=== PATIENT | female | born 1940 | race Caucasian/White ===

== ENCOUNTER 2017-02-14 19:42 | Emergency (ER) | payer MEDICARE ==
[~2017-02-14 19:42] MED LIST: ASPI1TAB69 PO; BENZ1CAP34 PO; BETA0.052 TOPICAL; CETI1TAB39 PO; CHOL400D2 PO; CLON0.1T PO; DICL1GEL TOPICAL; ESOM1CAP16 PO; ESTR.625 PO; FLUT50SP EACH NARE; LEVO112T2 PO; LORA-361 PO; LOSA50TA PO; NU-IRON PO; OMEP40CA2 PO; OXYC1TAB63 PO; POTA-163 PO; REFRDRO EACH EYE; TRIME100 PO; [UNRECOGNIZED DRUG - CODE] PO
[2017-02-14 19:43] VITALS: BP 222/120; PULSE 93; RESP 16; TEMP 98.4; O2SAT 96
--- NOTE | 2017-02-14 20:39 | PD ---
Physical Exam Time Seen by Provider: 20:[address] oT sent to r/o blood clot to RLE. pain in R leg since last night. worse today. positive leg edema greater than left. Reports tingling in R heel. Denies fever, vomiting. VSS. Patient seen in triage. Awaiting bed placement. Data Data Last Documented VS Vital Signs Date Time Temp Pulse Resp B/P Pulse Ox O2 Delivery O2 Flow Rate FiO2 02/14/17 19:43 98.4 93 16 222/120 96 Room Air MDM Supervised Visit with BRUCE: Betzy Matthew Feb 14, 2017 20:39
--- NOTE | 2017-02-14 23:11 | RADRPT ---
EXAM DATE/TIME: 02/14/2017 22:17 [facility] COMPARISON: No previous studies available for comparison. INDICATIONS : Right leg swelling. MEDICAL HISTORY : Hypertension. Arthritis. Osteoporosis. Thyroid disease. Hearing loss. Vertigo. Anticoagulant thera py, 81mg Aspirin. Shortness of breath. GERD. Hiatal hernia. Bladder sling. Kidney cysts. Anxiety. Ane stephenie. Thyroid cancer. SURGICAL HISTORY : Cholecystectomy. Right vocal cord surgery. Endoscopy. Umbilical hernia repair. Hysterectomy. Tubal ligation. Bladder sling surgery. Biopsy right shoulder. Thyroid cancer surgery. ENCOUNTER: Initial ACUITY: 2 day PAIN SCORE: 9/10 LOCATION: Right leg. TECHNIQUE: Venous ultrasound of the leg was performed from the inguinal ligament to the proximal calf. Real-caleb e, color Doppler and spectral tracing, compression and augmentation techniques were used. FINDINGS: There is normal compressibility of the deep venous system from the inguinal region to the proximal ca lf. No echogenic clot is seen in the lumen of the common femoral, femoral, popliteal, and posterior tibial veins. There is a normal response of the venous system to proximal and distal augmentation an d respiration. There is a oval-shaped fluid collection in the popliteal fossa measuring 3.5 x 2.5 cm. This is charac teristic of a Huffman's cyst. CONCLUSION: 1. No evidence of DVT. 2. Huffman's cyst. Anthony Ruiz MD on February 14, 2017 at 23:09 Board Certified Radiologist. This report was verified electronically.
--- NOTE | 2017-02-14 23:58 | PD ---
HPI Chief Complaint: Pain: Acute or Chronic Time Seen by Provider: 23:43 Travel History International Travel<30 days: No Contact w/Intl Traveler<30days: No Traveled to known affect area: No History of Present Illness HPI Patient 76-year-old female with a history of uncontrolled hypertension chronic right lower extremity deformity secondary to "arthritis", presents emergency Department with right lower extremity swelling. Patient was sent by her primary care physician in for an ultrasound of her leg to rule out DVT. Patient also does have a history of lymphoma but states his been remission for a long time. She denies any shortness of breath chest pain. She states that there is a burning sensation from her knee down the right lower extremity. No history of blood clots not on any blood thinners. States he recently had blood work which was within normal limits. She is also going to follow-up with a superior court judge in the next 1-2 weeks for evaluation of her uncontrolled blood pressure. Denies chest pain shortness of breath decreased urine output blood in the urine headaches focalized weakness. PFSH Past Medical History Hx Anticoagulant Therapy: Yes Anemia: Yes Arthritis: Yes (RIGHT FOOT, ANKLE AND BOTH HANDS) Asthma: No Heart Rhythm Problems: No Cancer: Yes (thyroid) Cardiovascular Problems: Yes High Cholesterol: No Chest Pain: No Congestive Heart Failure: No COPD: No Cerebrovascular Accident: No Diabetes: No Diminished Hearing: Yes Endocrine: No Gastrointestinal Disorders: Yes (GERD) GERD: Yes Glaucoma: No Genitourinary: Yes (BLADDER SLING ) Headaches: No Hepatitis: No Hiatal Hernia: Yes Hypertension: Yes Immune Disorder: No Kidney Stones: No Musculoskeletal: Yes (ARTHRITIES) Neurologic: Yes (VERTIGO) Psychiatric: Yes (ANXIETY) Reproductive: Yes (HYSTERECTOMY) Respiratory: Yes (SHORT OF BREATHE) Immunizations Current: Yes Migraines: No Myocardial Infarction: No Seizures: No Sleep Apnea: No Thyroid Disease: Yes Ulcer: No PNEUMOCCOCAL Vaccine (Year): 2 Menopausal: Yes : 7 Para: 7 Dilation and Curettage (D&C): Yes Tubal Ligation: Yes Past Surgical History Abdominal Surgery: Yes ( UMBILICAL HERNIA REPAIR) Body Medical Devices: LOW POTASSIUM Cardiac Surgery: No Cholecystectomy: Yes Ear Surgery: No Endocrine Surgery: Yes (THYROID SX FOR CA) Eye Surgery: No Genitourinary Surgery: Yes (bladder sling surgery, uretheral tube ) Gynecologic Surgery: Yes ( TUBAL LIGATION, D&C, HYSTERECTOMY 1994) Hysterectomy: Yes (TOTAL) Oral Surgery: Yes (SEVERAL TEETH REMOVED, RIGHT VOCAL CORD) Pacemaker: No Thoracic Surgery: Yes (ENDOSCOPY) Other Surgery: Yes (umbilical hernia repair, benign tumor removed from back) Social History Alcohol Use: No Tobacco Use: No Substance Use: No Allergies-Medications (Allergen,Severity, Reaction): Coded Allergies: Morphine (Verified Allergy, Severe, 02/14/17) MORPHINE DERIVATIVES Prilosec (Verified Allergy, Severe, ABDOMENAL PAIN, 02/14/17) MEME Inhibitors (Verified Allergy, Mild, 02/14/17) Adhesives (Verified Allergy, Mild, 02/14/17) Augmentin (Verified Allergy, Mild, 02/14/17) Axid (Verified Allergy, Mild, 02/14/17) Beta Blockers (Verified Allergy, Mild, 02/14/17) Calcium Channel Blockers (Verified Allergy, Mild, 02/14/17) Capoten (Verified Allergy, Mild, 02/14/17) Cardura (Verified Allergy, Mild, 02/14/17) Cipro (Verified Allergy, Mild, 02/14/17) Corgard (Verified Allergy, Mild, 02/14/17) DIURETICS (Verified Allergy, Mild, 02/14/17) Demadex (Verified Allergy, Mild, 02/14/17) Hydrodiuril (Verified Allergy, Mild, 02/14/17) Iodine (Verified Allergy, Mild, 02/14/17) Keflex (Verified Allergy, Mild, YEAST INFECTION, 02/14/17) LOTREL 10/2.5 (Verified Allergy, Mild, 02/14/17) Lodine (Verified Allergy, Mild, 02/14/17) Lopressor (Verified Allergy, Mild, 02/14/17) Micardis (Verified Allergy, Mild, 02/14/17) Phenergan (Verified Allergy, Mild, Restlessness, 02/14/17) Procardia (Verified Allergy, Mild, 02/14/17) Sulfa (Verified Allergy, Mild, 02/14/17) FAMILY OF SULFA DRUGS Tenex (Verified Allergy, Mild, 02/14/17) Toprol Xl (Verified Allergy, Mild, 02/14/17) Azithromycin (Verified Allergy, Unknown, 02/14/17) Codeine (Verified Allergy, Unknown, 02/14/17) Erythromycins (Verified Allergy, Unknown, 02/14/17) Felodipine (Verified Allergy, Unknown, 02/14/17) Hydralazine (Verified Allergy, Unknown, 02/14/17) Lozol (Verified Allergy, Unknown, 02/14/17) Meperidine (Verified Allergy, Unknown, 02/14/17) Methadone (Verified Allergy, Unknown, 02/14/17) Sulfacet-R (Verified Allergy, Unknown, 02/14/17) Uncoded Allergies: PLENDIL (Allergy, Severe, 02/11/16) AQUANIL SOAP (Allergy, Mild, FAN SKIN, 12/02/07) Reported Meds & Prescriptions Reported Meds & Active Scripts Active Reported Losartan (Losartan Potassium) 50 Mg Tab 100 Mg PO DAILY Voltaren Topical (Diclofenac Topical) 1% Gel 1 Applic TOPICAL BID Vitamin D (Cholecalciferol) 400 Unit/Ml Drops 400 Units PO BID Trimethoprim 100 Mg Tab 100 Mg PO DAILY Refresh Opth Drops (Polyvinyl Alcohol-Povidone Opth Drops) 1.4-0.6% Drops 1-2 Drop EACH EYE PRN PRN Premarin (Estrogens Conjugated) 0.625 Mg Tab 0.625 Mg PO DAILY Potassium Chloride ER (Potassium Chloride) 20 Meq Tab 20 Meq PO DAILY Poly-Iron 150 (Polysaccharide Iron Complex) 150 Mg Cap 150 Mg PO Q12HR Oxycodone-Acetaminophen 5-325 mg Tab 1 Tab PO BID PRN Zyrtec Allergy (Cetirizine HCl) 10 Mg Tab 10 Mg PO DAILY Omeprazole 40 Mg Cap 40 Mg PO DAILY Levothyroxine (Levothyroxine Sodium) 112 Mcg Tab 112 Mcg PO DAILY Fluticasone Nasal [place] 50 Mcg/Act Naspr 50 Mcg EACH NARE BID 50 mcg/spray Esomeprazole DR 40 Mg Capdr 40 Mg PO DAILY Clonidine (Clonidine HCl) 0.1 Mg Tab 0.1 Mg PO TID Claritin (Loratadine) 10 Mg Tab 10 Mg PO DAILY Betamethasone Dipropionate Topical 0.05% Cream 1 Applic TOPICAL BID Benzonatate 200 Mg Cap 200 Mg PO TID PRN B-12 (Cobalamine Combinations) 100-5,000 Mcg Subl 1 Tab PO DAILY Aspirin 81 Mg Tabdr 81 Mg PO DAILY Review of Systems Except as stated in HPI: all other systems reviewed are Neg Physical Exam Narrative GENERAL: Well-developed well-nourished no apparent distress SKIN: Focused skin assessment warm/dry. HEAD: Atraumatic. Normocephalic. EYES: Pupils equal and round. No scleral icterus. No injection or drainage. ENT: No nasal bleeding or discharge. Mucous membranes pink and moist. NECK: Trachea midline. No JVD. CARDIOVASCULAR: Regular rate and rhythm. No murmur appreciated. RESPIRATORY: No accessory muscle use. Clear to auscultation. Breath sounds equal bilaterally. GASTROINTESTINAL: Abdomen soft, non-tender, nondistended. Hepatic and splenic margins not palpable. MUSCULOSKELETAL: No clubbing. No cyanosis. There is 1+ edema of the right lower extremity which is nonpitting. Compartments are soft. There is a pain with light palpation. There is also some tenderness in the posterior aspect of the right knee. Pulses motor and sensory intact distally in all 4 extremity's. There is lateral angulation of the ankle joint. Patient states his been present for a long time. No history of recent trauma. NEUROLOGICAL: Awake and alert. No obvious cranial nerve deficits. Motor grossly within normal limits. Normal speech. PSYCHIATRIC: Appropriate mood and affect; insight and judgment normal. Data Data Last Documented VS Vital Signs Date Time Temp Pulse Resp B/P Pulse Ox O2 Delivery O2 Flow Rate FiO2 02/15/17 00:11 71 18 217/114 99 Room Air 02/14/17 19:43 98.4 Orders Us Leg Venous Doppler (02/14/17 21:34) MDM Medical Decision Making Medical Screen Exam Complete: Yes Emergency Medical Condition: Yes Differential Diagnosis PE, vascular congestion, department syndrome highly unlikely, uncontrolled hypertension. Narrative Course Patient roomed in the emergency department, she had an ultrasound ordered from triage which was negative for PE. Patient was reassured. She has no review of systems is suggested her blood pressure is causing hypertensive emergency. No indication to treat him emergently. She does have prescriptions for 6 antihypertensives and is going to follow up with superior court judge. She stable for discharge at this time. Recommend following up with her primary care physician by phone tomorrow. Diagnosis Primary Impression: Pedal edema Disposition: DISCHARGE HOME Condition: Stable Karthik Campos MD Feb 14, 2017 23:57
[2017-02-15 00:11] VITALS: BP 217/114; PULSE 71; RESP 18; O2SAT 99
== END 2017-02-15 00:23 | disposition home or self-care (01) ==
LOC: NEPD 19:42
DX: R60.0 Localized edema (principal); Z79.01 Long term (current) use of anticoagulants; M13.88 Other specified arthritis, other site; K21.9 Gastro-esophageal reflux disease without esophagitis; I10 Essential (primary) hypertension
CPT/HCPCS: 93971

== ENCOUNTER 2017-06-11 07:33 | Emergency (ER) | payer MEDICARE ==
[~2017-06-11] VITALS: Ht 162.6 cm; Wt 94.0 kg
[2017-06-11 07:36] VITALS: BP 145/84; PULSE 97; RESP 17; TEMP 97.8; O2SAT 97
[2017-06-11] MEDS ORDERED: oxyCODONE/ACETAMINOPHEN 5 MG/325 MG TAB PO ONE (08:15)
--- NOTE | 2017-06-11 08:20 | PD ---
HPI Chief Complaint: Pain: Acute or Chronic Time Seen by Provider: 07:43 Travel History International Travel<30 days: No Contact w/Intl Traveler<30days: No Traveled to known affect area: No History of Present Illness HPI This is a 77-year-old female who has a history of hypertension who presents to the emergency department having woken up this morning with pain in her left arm. She says it's worse when she moves it. The pain is achy and constant, moderate severity. She denies any numbness or tingling in the arm. She denies any shortness of breath or chest pain. She was concerned that she might have a blood clot in her arm. She has a lot of allergies to antihypertensives. PFSH Past Medical History Hx Anticoagulant Therapy: Yes Anemia: Yes Arthritis: Yes (RIGHT FOOT, ANKLE AND BOTH HANDS) Asthma: No Heart Rhythm Problems: No Cancer: Yes (thyroid) Cardiovascular Problems: Yes High Cholesterol: No Chest Pain: No Congestive Heart Failure: No COPD: No Cerebrovascular Accident: No Diabetes: No Diminished Hearing: Yes Endocrine: No Gastrointestinal Disorders: Yes (GERD) GERD: Yes Glaucoma: No Genitourinary: Yes (BLADDER SLING ) Headaches: No Hepatitis: No Hiatal Hernia: Yes Hypertension: Yes Immune Disorder: No Kidney Stones: No Medical other: Yes (hX LOW POTASSIUM LEVEL, 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) Musculoskeletal: Yes (ARTHRITIES) Neurologic: Yes (VERTIGO) Psychiatric: Yes (ANXIETY) Reproductive: Yes (HYSTERECTOMY) Respiratory: Yes (SHORT OF BREATHE) Immunizations Current: Yes Migraines: No Myocardial Infarction: No Seizures: No Sleep Apnea: No Thyroid Disease: Yes Ulcer: No PNEUMOCCOCAL Vaccine (Year): 2 Menopausal: Yes : 7 Para: 7 Dilation and Curettage (D&C): Yes Tubal Ligation: Yes Past Surgical History Abdominal Surgery: Yes ( UMBILICAL HERNIA REPAIR) Body Medical Devices: LOW POTASSIUM Cardiac Surgery: No Cholecystectomy: Yes Ear Surgery: No Endocrine Surgery: Yes (THYROID SX FOR CA) Eye Surgery: No Genitourinary Surgery: Yes (bladder sling surgery, uretheral tube ) Gynecologic Surgery: Yes ( TUBAL LIGATION, D&C, HYSTERECTOMY 1994) Hysterectomy: Yes (TOTAL) Oral Surgery: Yes (SEVERAL TEETH REMOVED, RIGHT VOCAL CORD) Pacemaker: No Thoracic Surgery: Yes (ENDOSCOPY) Other Surgery: Yes (umbilical hernia repair, benign tumor removed from back) Social History Alcohol Use: No Tobacco Use: No Substance Use: No Allergies-Medications (Allergen,Severity, Reaction): Coded Allergies: Morphine (Verified Allergy, Severe, 06/11/17) MORPHINE DERIVATIVES Prilosec (Verified Allergy, Severe, ABDOMENAL PAIN, 06/11/17) MEME Inhibitors (Verified Allergy, Mild, 06/11/17) Adhesives (Verified Allergy, Mild, 06/11/17) Augmentin (Verified Allergy, Mild, 06/11/17) Axid (Verified Allergy, Mild, 06/11/17) Beta Blockers (Verified Allergy, Mild, 06/11/17) Calcium Channel Blockers (Verified Allergy, Mild, 06/11/17) Capoten (Verified Allergy, Mild, 06/11/17) Cardura (Verified Allergy, Mild, 06/11/17) Cipro (Verified Allergy, Mild, 06/11/17) Corgard (Verified Allergy, Mild, 06/11/17) DIURETICS (Verified Allergy, Mild, 06/11/17) Demadex (Verified Allergy, Mild, 06/11/17) Hydrodiuril (Verified Allergy, Mild, 06/11/17) Iodine (Verified Allergy, Mild, 06/11/17) Keflex (Verified Allergy, Mild, YEAST INFECTION, 06/11/17) LOTREL 10/2.5 (Verified Allergy, Mild, 06/11/17) Lodine (Verified Allergy, Mild, 06/11/17) Lopressor (Verified Allergy, Mild, 06/11/17) Micardis (Verified Allergy, Mild, 06/11/17) Phenergan (Verified Allergy, Mild, Restlessness, 06/11/17) Procardia (Verified Allergy, Mild, 06/11/17) Sulfa (Verified Allergy, Mild, 06/11/17) FAMILY OF SULFA DRUGS Tenex (Verified Allergy, Mild, 06/11/17) Toprol Xl (Verified Allergy, Mild, 06/11/17) Azithromycin (Verified Allergy, Unknown, 06/11/17) Codeine (Verified Allergy, Unknown, 06/11/17) Erythromycins (Verified Allergy, Unknown, 06/11/17) Felodipine (Verified Allergy, Unknown, 06/11/17) Hydralazine (Verified Allergy, Unknown, 06/11/17) Lozol (Verified Allergy, Unknown, 06/11/17) Meperidine (Verified Allergy, Unknown, 06/11/17) Methadone (Verified Allergy, Unknown, 06/11/17) Sulfacet-R (Verified Allergy, Unknown, 06/11/17) Uncoded Allergies: PLENDIL (Allergy, Severe, 02/11/16) AQUANIL SOAP (Allergy, Mild, FAN SKIN, 12/02/07) Reported Meds & Prescriptions Reported Meds & Active Scripts Active Reported Losartan (Losartan Potassium) 50 Mg Tab 100 Mg PO DAILY Voltaren Topical (Diclofenac Topical) 1% Gel 1 Applic TOPICAL BID Vitamin D (Cholecalciferol) 400 Unit/Ml Drops 400 Units PO BID Trimethoprim 100 Mg Tab 100 Mg PO DAILY Refresh Opth Drops (Polyvinyl Alcohol-Povidone Opth Drops) 1.4-0.6% Drops 1-2 Drop EACH EYE PRN PRN Premarin (Estrogens Conjugated) 0.625 Mg Tab 0.625 Mg PO DAILY Potassium Chloride ER (Potassium Chloride) 20 Meq Tab 20 Meq PO DAILY Poly-Iron 150 (Polysaccharide Iron Complex) 150 Mg Cap 150 Mg PO Q12HR Oxycodone-Acetaminophen 5-325 mg Tab 1 Tab PO BID PRN Zyrtec Allergy (Cetirizine HCl) 10 Mg Tab 10 Mg PO DAILY Omeprazole 40 Mg Cap 40 Mg PO DAILY Levothyroxine (Levothyroxine Sodium) 112 Mcg Tab 112 Mcg PO DAILY Fluticasone Nasal [place] 50 Mcg/Act Naspr 50 Mcg EACH NARE BID 50 mcg/spray Esomeprazole DR 40 Mg Capdr 40 Mg PO DAILY Clonidine (Clonidine HCl) 0.1 Mg Tab 0.1 Mg PO TID Claritin (Loratadine) 10 Mg Tab 10 Mg PO DAILY Betamethasone Dipropionate Topical 0.05% Cream 1 Applic TOPICAL BID Benzonatate 200 Mg Cap 200 Mg PO TID PRN B-12 (Cobalamine Combinations) 100-5,000 Mcg Subl 1 Tab PO DAILY Aspirin 81 Mg Tabdr 81 Mg PO DAILY Review of Systems Except as stated in HPI: all other systems reviewed are Neg Physical Exam Narrative GENERAL:Well appearing, no acute distress SKIN: Focused skin assessment warm and dry. HEAD: Atraumatic. Normocephalic. EYES: Pupils equal and round. No injection or drainage. ENT: Moist mucous membranes NECK: Trachea midline. CARDIOVASCULAR: Regular rate and rhythm. No murmur appreciated. 2+ left radial pulse with normal capillary refill. RESPIRATORY: Clear to auscultation. Breath sounds equal bilaterally. GASTROINTESTINAL: Abdomen soft, non-tender, nondistended. MUSCULOSKELETAL: Tender to palpation along the bicep with pain with external rotation of the left shoulder and with abduction of the left shoulder. NEUROLOGICAL: Awake and alert. No obvious cranial nerve deficits. Moving all extremities. PSYCHIATRIC: Appropriate mood and affect; insight and judgment normal. Data Data Last Documented VS Vital Signs Date Time Temp Pulse Resp B/P Pulse Ox O2 Delivery O2 Flow Rate FiO2 06/11/17 07:36 97.8 97 17 145/84 97 Orders Complete Blood Count With Diff (06/11/17 08:01) Basic Metabolic Panel (Bmp) (06/11/17 08:01) Troponin I (06/11/17 08:01) Us Arm Venous Doppler (06/11/17 ) Oxycodone-Acetamin 5-325 Mg (Percocet (06/11/17 08:15) Labs Laboratory Tests Test 06/11/17 08:05 White Blood Count 7.9 TH/MM3 Red Blood Count 4.37 MIL/MM3 Hemoglobin 12.5 GM/DL Hematocrit 38.4 % Mean Corpuscular Volume 87.8 FL Mean Corpuscular Hemoglobin 28.5 PG Mean Corpuscular Hemoglobin 32.5 % Concent Red Cell Distribution Width 15.1 % Platelet Count 238 TH/MM3 Mean Platelet Volume 9.2 FL Neutrophils (%) (Auto) 58.4 % Lymphocytes (%) (Auto) 29.0 % Monocytes (%) (Auto) 7.4 % Eosinophils (%) (Auto) 4.4 % Basophils (%) (Auto) 0.8 % Neutrophils # (Auto) 4.6 TH/MM3 Lymphocytes # (Auto) 2.3 TH/MM3 Monocytes # (Auto) 0.6 TH/MM3 Eosinophils # (Auto) 0.3 TH/MM3 Basophils # (Auto) 0.1 TH/MM3 CBC Comment DIFF FINAL Differential Comment Sodium Level 141 MEQ/L Potassium Level 4.5 MEQ/L Chloride Level 105 MEQ/L Carbon Dioxide Level 29.0 MEQ/L Anion Gap 7 MEQ/L Blood Urea Nitrogen 12 MG/DL Creatinine 0.99 MG/DL Estimat Glomerular Filtration 55 ML/MIN Rate Random Glucose 119 MG/DL Calcium Level 9.5 MG/DL Troponin I LESS THAN 0.02 NG/ML MDM Medical Decision Making Medical Screen Exam Complete: Yes Emergency Medical Condition: Yes Interpretation(s) afebrile, no tachycardic, hypertension labs reassuring us: no dvt Differential Diagnosis DVT, muscle spasm, acute coronary syndrome, hypertensive urgency Narrative Course This is a 77-year-old female who presents to the emergency department with pain in her left arm. He has a long history of poorly controlled hypertension and takes clonidine for it. She is placed on a monitor and an IV was established. EKG demonstrates some nonspecific findings. Troponin is negative. Patient's pain seems purely musculoskeletal, she is tender to palpation along the bicep and she has pain with movement of the shoulder. I don't think this reflects an acute coronary syndrome. Patient feels much better after Percocet. I think patient can safely be discharged home. She'll return if she develops any chest discomfort, nausea, shortness of breath or sweating. Diagnosis Primary Impression: Musculoskeletal pain of left upper extremity Patient Instructions: General Instructions Additional Instructions: If you develop severe chest pain, shortness of breath, sweating, lightheadedness , dizziness or difficulty breathing return to the emergency department immediately. Followup with your primary care physician in 2-3 days if your symptoms are not resolved. Med/Other Pt SpecificInfo: Prescription(s) given Scripts Oxycodone-Acetaminophen (Percocet)5-325 mg Tab1 Tab PO Q6H PRN (PAIN) #10 TAB Ref 0 Prov:Maria Isabel Hand MD 06/11/17 Disposition: 01 DISCHARGE HOME Condition: Stable Maria Isabel Hand MD Jun 11, 2017 08:20
[2017-06-11 08:28] LABS: AUTOMATED NEUTROPHIL # 4.6 TH/MM3 (1.8-7.7); BASOPHIL # 0.1 TH/MM3 (0-0.2); BASOPHIL % 0.8 % (0.0-2.0); EOSINOPHIL # 0.3 TH/MM3 (0-0.4); EOSINOPHIL % 4.4 % (0.0-4.0); HEMATOCRIT 38.4 % (35.0-46.0); LYMPHOCYTE # 2.3 TH/MM3 (1.0-4.8); MEAN CELL VOLUME 87.8 FL (80.0-100.0); MEAN CORPUSCULAR HEMOGLOBIN 28.5 PG (27.0-34.0); MEAN CORPUSCULAR HGB CONC 32.5 % (32.0-36.0); MONO % 7.4 % (0.0-8.0); NEUT % 58.4 % (16.0-70.0); PLATELET COUNT 238 TH/MM3 (150-450); RED BLOOD COUNT 4.37 MIL/MM3 (4.00-5.30); RED CELL DISTRIBUTION WIDTH 15.1 % (11.6-17.2); WHITE BLOOD COUNT 7.9 TH/MM3 (4.0-11.0)
[2017-06-11 08:30] LABS: HEMO FLAGS DIFF FINAL
[2017-06-11 08:40] LABS: ANION GAP 7 MEQ/L (5-15); BLOOD UREA NITROGEN 12 MG/DL (7-18); CHLORIDE 105 MEQ/L (98-107); GLOMERULAR FILTRATION RATE 55 ML/MIN (>89); POTASSIUM 4.5 MEQ/L (3.5-5.1); SODIUM (NA) 141 MEQ/L (136-145)
--- NOTE | 2017-06-11 09:19 | RADRPT ---
EXAM DATE/TIME: 06/11/2017 08:36 [facility] COMPARISON: No previous studies available for comparison. INDICATIONS : Left arm pain. MEDICAL HISTORY : Hernia, hiatal. Arthritis. Carcinoma, thyroid. Osteoporosis. Anemia. Hearing loss. Vertigo. HTN. GERD . Renal disease. Anticoagulant therapy, Aspirin 81mg. SURGICAL HISTORY : Umbilical hernia repair. Cholecystectomy. Hysterectomy. Several teeth removed. Right vocal cord surg foster. Endocsopy. Tubal ligation. D&C. Bladder sling. Uretheral tube. Thyroid surgery. Right shoulder biopsy. Benign tumor from back removed. ENCOUNTER: Initial ACUITY: 1 day PAIN SCORE: 9/10 LOCATION: Left arm. FINDINGS: There is spontaneous flow documented in the brachial, basilic, cephalic, axillary, and subclavian vei ns. The vessels are compressible and augmentation response is documented. No filling defects are se en. The flow is phasic with respiration. Direction of flow in the jugular vein is caudal. CONCLUSION: Normal examination. Db Leggett MD on June 11, 2017 at 9:18 Board Certified Radiologist. This report was verified electronically.
[2017-06-11] MEDS ORDERED: PERC5TAB12 PO (09:33)
[2017-06-11] MEDS ORDERED: cloNIDine HCL 0.1 MG TAB PO ONE (09:45)
--- NOTE | 2017-06-11 14:58 | EKG ---
Date Performed: 06/11/2017 Time Performed: 07:56:22 PTAGE: 77 years EKG: Sinus rhythm INFERIOR MYOCARDIAL INFARCTION ABNORMAL ECG NO PREVIOUS TRACING DOCTOR: Obi Kohler Interpretating Date/Time 06/11/2017 14:55:04
== END 2017-06-11 10:14 | disposition home or self-care (01) ==
LOC: NEPE 07:33
DX: M25.512 Pain in left shoulder (principal); I10 Essential (primary) hypertension; K21.9 Gastro-esophageal reflux disease without esophagitis; R07.9 Chest pain, unspecified; Z79.82 Long term (current) use of aspirin; Z85.850 Personal history of malignant neoplasm of thyroid; E89.0 Postprocedural hypothyroidism
CPT/HCPCS: 80048; 84484; 85025; 93005; 93971; 99284

== ENCOUNTER 2017-11-24 04:47 | Emergency (ER) | payer MEDICARE ==
[~2017-11-24] VITALS: Ht 177.8 cm; Wt 95.0 kg
[~2017-11-24 04:47] MED LIST changes: -BENZ1CAP34 PO; +BENZ1CAP51 PO; +PERC5TAB12 PO
[2017-11-24 04:51] VITALS: BP 233/117; PULSE 88; RESP 16; TEMP 98.3; O2SAT 98
[2017-11-24 05:10] VITALS: BP 185/106; PULSE 88; RESP 20; O2SAT 97
[2017-11-24] MEDS ORDERED: predniSONE 20 MG TAB PO ONE (05:15)
[2017-11-24] MEDS ORDERED: RESP: ALBUTEROL 2.5 MG/IPRATROPIUM 0.5 MG NEB (SCH) NEB ONE (05:15)
[2017-11-24] MEDS ORDERED: RESP: LIDOCAINE HCL 4% PF 5 ML NEB NEB ONE (05:15)
--- NOTE | 2017-11-24 05:47 | RADRPT ---
EXAM DATE/TIME: 11/24/2017 05:17 [facility] COMPARISON: CHEST SINGLE AP, October 12, 2016, 22:37. INDICATIONS : Shortness of breath. MEDICAL HISTORY : Hypertension. SURGICAL HISTORY : None. ENCOUNTER: Initial ACUITY: 1 day PAIN SCORE: 0/10 LOCATION: Bilateral chest FINDINGS: A single view of the chest demonstrates the lungs to be symmetrically aerated without evidence of mas s, infiltrate or effusion. The cardiomediastinal contours are unremarkable. Osseous structures are intact. CONCLUSION: 1. No acute cardiopulmonary disease. Chuck Solis MD on November 24, 2017 at 5:45 Board Certified Radiologist. This report was verified electronically.
[2017-11-24 06:10] VITALS: BP 196/97; PULSE 80; RESP 18; O2SAT 96
[2017-11-24] MEDS ORDERED: cloNIDine HCL 0.1 MG TAB PO ONE (06:15)
[2017-11-24] MEDS ORDERED: CETI10 PO (06:18)
[2017-11-24] MEDS ORDERED: MECL-62 PO (06:18)
[2017-11-24] MEDS ORDERED: ASPI-516 CHEW (06:18)
[2017-11-24] MEDS ORDERED: FERR150C (06:18)
[2017-11-24] MEDS ORDERED: SYNT25TA PO (06:18)
[2017-11-24] MEDS ORDERED: RELEMIS INH (06:19)
[2017-11-24] MEDS ORDERED: ALBU0.63 NEB (06:19)
--- NOTE | 2017-11-24 06:43 | PD ---
HPI . Respiratory distress Chief Complaint: Respiratory Symptoms Time Seen by Provider: 04:59 Travel History International Travel<30 days: No Contact w/Intl Traveler<30days: No Traveled to known affect area: No History of Present Illness HPI 77-year-old female with positive ill contacts influenza, has been recently diagnosed with influenza A, presents with having several days of having shortness of breath cough and difficulty holding her breath but taking a deep breath secondary to coughing. Patient denies production of cough, has no fever. Patient denies orthopnea, has chronic leg swelling secondary to rheumatoid arthritis PFSH Past Medical History Hx Anticoagulant Therapy: Yes Anemia: Yes Arthritis: Yes (RIGHT FOOT, ANKLE AND BOTH HANDS) Asthma: No Heart Rhythm Problems: No Cancer: Yes (thyroid) Cardiovascular Problems: Yes High Cholesterol: No Chest Pain: No Congestive Heart Failure: No COPD: No Cerebrovascular Accident: No Diabetes: No Diminished Hearing: Yes Endocrine: No Gastrointestinal Disorders: Yes (GERD) GERD: Yes Glaucoma: No Genitourinary: Yes (BLADDER SLING ) Headaches: No Hepatitis: No Hiatal Hernia: Yes Hypertension: Yes Immune Disorder: No Kidney Stones: No Medical other: Yes (hX LOW POTASSIUM LEVEL, 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) Musculoskeletal: Yes (ARTHRITIES) Neurologic: Yes (VERTIGO) Psychiatric: Yes (ANXIETY) Reproductive: Yes (HYSTERECTOMY) Respiratory: Yes (SHORT OF BREATHE) Immunizations Current: Yes Migraines: No Myocardial Infarction: No Renal Failure: Yes Seizures: No Sleep Apnea: No Thyroid Disease: Yes Ulcer: No Tetanus Vaccination: > 5 Years Influenza Vaccination: No PNEUMOCCOCAL Vaccine (Year): 2 Menopausal: Yes : 7 Para: 7 Dilation and Curettage (D&C): Yes Tubal Ligation: Yes Past Surgical History Abdominal Surgery: Yes ( UMBILICAL HERNIA REPAIR) Appendectomy: Yes Body Medical Devices: LOW POTASSIUM Cardiac Surgery: No Cholecystectomy: Yes Ear Surgery: No Endocrine Surgery: Yes (THYROID SX FOR CA) Eye Surgery: No Genitourinary Surgery: Yes (bladder sling surgery, uretheral tube ) Gynecologic Surgery: Yes ( TUBAL LIGATION, D&C, HYSTERECTOMY 1994) Hysterectomy: Yes (TOTAL) Neurologic Surgery: No Oral Surgery: Yes (SEVERAL TEETH REMOVED, RIGHT VOCAL CORD) Pacemaker: No Thoracic Surgery: Yes (ENDOSCOPY) Other Surgery: Yes (umbilical hernia repair, benign tumor removed from back) Social History Alcohol Use: No Tobacco Use: No Substance Use: No Allergies-Medications (Allergen,Severity, Reaction): Coded Allergies: morphine (Unverified Allergy, Severe, 06/18/17) MORPHINE DERIVATIVES omeprazole (Unverified Allergy, Severe, ABDOMENAL PAIN, 06/18/17) Sulfa (Sulfonamide Antibiotics) (Unverified Allergy, Mild, 06/18/17) FAMILY OF SULFA DRUGS acebutolol (Unverified Allergy, Mild, 06/18/17) adhesive (Unverified Allergy, Mild, 06/18/17) amlodipine (Unverified Allergy, Mild, 06/18/17) amoxicillin (Unverified Allergy, Mild, 06/18/17) atenolol (Unverified Allergy, Mild, 06/18/17) atorvastatin (Unverified Allergy, Mild, 06/18/17) benazepril (Unverified Allergy, Mild, 06/18/17) betaxolol (Unverified Allergy, Mild, 06/18/17) captopril (Unverified Allergy, Mild, 06/18/17) carvedilol (Unverified Allergy, Mild, 06/18/17) cephalexin (Unverified Allergy, Mild, YEAST INFECTION, 06/18/17) ciprofloxacin (Unverified Allergy, Mild, 06/18/17) clavulanic acid (Unverified Allergy, Mild, 06/18/17) diltiazem (Unverified Allergy, Mild, 06/18/17) doxazosin (Unverified Allergy, Mild, 06/18/17) enalaprilat (Unverified Allergy, Mild, 06/18/17) etodolac (Unverified Allergy, Mild, 06/18/17) fosinopril (Unverified Allergy, Mild, 06/18/17) guanfacine (Unverified Allergy, Mild, 06/18/17) hydrochlorothiazide (Unverified Allergy, Mild, 06/18/17) iodine (Unverified Allergy, Mild, 06/18/17) isradipine (Unverified Allergy, Mild, 06/18/17) labetalol (Unverified Allergy, Mild, 06/18/17) lisinopril (Unverified Allergy, Mild, 06/18/17) metoprolol (Unverified Allergy, Mild, 06/18/17) nadolol (Unverified Allergy, Mild, 06/18/17) nebivolol (Unverified Allergy, Mild, 06/18/17) nicardipine (Unverified Allergy, Mild, 06/18/17) nifedipine (Unverified Allergy, Mild, 06/18/17) nimodipine (Unverified Allergy, Mild, 06/18/17) nizatidine (Unverified Allergy, Mild, 06/18/17) pindolol (Unverified Allergy, Mild, 06/18/17) potassium iodide (Unverified Allergy, Mild, 06/18/17) povidone-iodine (Unverified Allergy, Mild, 06/18/17) promethazine (Unverified Allergy, Mild, Restlessness, 06/18/17) propranolol (Unverified Allergy, Mild, 06/18/17) quinapril (Unverified Allergy, Mild, 06/18/17) sodium iodide (Unverified Allergy, Mild, 06/18/17) sodium iodide (Unverified Allergy, Mild, 06/18/17) sotalol (Unverified Allergy, Mild, 06/18/17) telmisartan (Unverified Allergy, Mild, 06/18/17) timolol (Unverified Allergy, Mild, 06/18/17) torsemide (Unverified Allergy, Mild, 06/18/17) verapamil (Unverified Allergy, Mild, 06/18/17) azithromycin (Unverified Allergy, Unknown, 06/18/17) codeine (Unverified Allergy, Unknown, 06/18/17) erythromycin base (Unverified Allergy, Unknown, 06/18/17) felodipine (Unverified Allergy, Unknown, 06/18/17) hydralazine (Unverified Allergy, Unknown, 06/18/17) indapamide (Unverified Allergy, Unknown, 06/18/17) meperidine (Unverified Allergy, Unknown, 06/18/17) methadone (Unverified Allergy, Unknown, 06/18/17) sulfacetamide (Unverified Allergy, Unknown, 06/18/17) sulfur (Unverified Allergy, Unknown, 06/18/17) Uncoded Allergies: PLENDIL (Allergy, Severe, 02/11/16) AQUANIL SOAP (Allergy, Mild, FAN SKIN, 12/02/07) DIURETICS (Allergy, Mild, 06/18/17) Reported Meds & Prescriptions Reported Meds & Active Scripts Active Percocet (Oxycodone-Acetaminophen) 5-325 mg Tab 1 Tab PO Q6H PRN Reported Albuterol Neb (Albuterol Sulfate) 0.63 Mg/3 Ml Neb 0.083 Mg NEB Q4HR NEB PRN Relenza Inhalation Powder Blister (Zanamivir) 5 Mg/Blister Cap 20 Mg INH DAILY Two inhalations = 10 mg Meclizine (Meclizine HCl) 25 Mg Tab 25 Mg PO TID PRN Cetirizine (Cetirizine HCl) 10 Mg Tab 10 Mg PO DAILY Ferrex 150 (Polysaccharide Iron Complex) 150 Mg Iron Cap 150 Mg DAILY Aspirin 81 Mg Chew 81 Mg CHEW DAILY Synthroid (Levothyroxine Sodium) 25 Mcg Tab 0.1112 Mcg PO DAILY Losartan (Losartan Potassium) 50 Mg Tab 100 Mg PO DAILY Vitamin D (Cholecalciferol) 400 Unit/Ml Drops 400 Units PO BID Trimethoprim 100 Mg Tab 100 Mg PO DAILY Refresh Opth Drops (Polyvinyl Alcohol-Povidone Opth Drops) 1.4-0.6% Drops 1-2 Drop EACH EYE PRN PRN Premarin (Estrogens Conjugated) 0.625 Mg Tab 0.625 Mg PO DAILY Potassium Chloride ER (Potassium Chloride) 20 Meq Tab 20 Meq PO DAILY Poly-Iron 150 (Polysaccharide Iron Complex) 150 Mg Cap 150 Mg PO Q12HR Oxycodone-Acetaminophen 5-325 mg Tab 1 Tab PO BID PRN Omeprazole 40 Mg Cap 40 Mg PO DAILY Levothyroxine (Levothyroxine Sodium) 112 Mcg Tab 112 Mcg PO DAILY Fluticasone Nasal [place] 50 Mcg/Act Naspr 50 Mcg EACH NARE BID 50 mcg/spray Esomeprazole DR 40 Mg Capdr 40 Mg PO DAILY Clonidine (Clonidine HCl) 0.1 Mg Tab 0.1 Mg PO TID Betamethasone Dipropionate Topical 0.05% Cream 1 Applic TOPICAL BID Benzonatate 200 Mg Cap 200 Mg PO TID PRN B-12 (Cobalamine Combinations) 100-5,000 Mcg Subl 1 Tab PO DAILY Physical Exam Narrative 77-year-old female presents with staccato cough nonproductive worsening over the past 2 days. Patient states she's hard time getting a deep breath because of frequent coughing. Has been recently diagnosed with influenza A. Patient otherwise denies any fevers chills sweats, body aches, has no hemoptysis Data Data Last Documented VS Vital Signs Date Time Temp Pulse Resp B/P (MAP) Pulse Ox O2 Delivery O2 Flow Rate FiO2 11/24/17 07:08 205/100 (135) 11/24/17 06:10 80 18 96 Room Air 11/24/17 04:51 98.3 Orders Orders Prednisone (Deltasone) (11/24/17 05:15) Albuterol-Ipratropium Neb (Duoneb Neb) (11/24/17 05:15) Lidocaine Pf 4% Neb (Lidocaine Pf 4% Neb (11/24/17 05:15) Chest, Single Ap (11/24/17 ) Influenzae A/B Antigen (11/24/17 05:11) Clonidine (Catapres) (11/24/17 06:15) Complete Blood Count With Diff (11/24/17 06:13) Comprehensive Metabolic Panel (11/24/17 06:13) Troponin I (11/24/17 06:13) Urinalysis - C+S If Indicated (11/24/17 06:13) Electrocardiogram (11/24/17 ) Labs Laboratory Tests Test 11/24/17 06:30 White Blood Count 8.2 TH/MM3 Red Blood Count 4.38 MIL/MM3 Hemoglobin 13.2 GM/DL Hematocrit 39.2 % Mean Corpuscular Volume 89.4 FL Mean Corpuscular Hemoglobin 30.2 PG Mean Corpuscular Hemoglobin Concent 33.8 % Red Cell Distribution Width 13.9 % Platelet Count 208 TH/MM3 Mean Platelet Volume 9.8 FL Neutrophils (%) (Auto) 63.6 % Lymphocytes (%) (Auto) 27.9 % Monocytes (%) (Auto) 5.0 % Eosinophils (%) (Auto) 2.7 % Basophils (%) (Auto) 0.8 % Neutrophils # (Auto) 5.2 TH/MM3 Lymphocytes # (Auto) 2.3 TH/MM3 Monocytes # (Auto) 0.4 TH/MM3 Eosinophils # (Auto) 0.2 TH/MM3 Basophils # (Auto) 0.1 TH/MM3 CBC Comment DIFF FINAL Differential Comment Urine Color LIGHT-YELLOW Urine Turbidity CLEAR Urine pH 5.5 Urine Specific [place] 1.003 Urine Protein NEG mg/dL Urine Glucose (UA) NEG mg/dL Urine Ketones NEG mg/dL Urine Occult Blood NEG Urine Nitrite NEG Urine Bilirubin NEG Urine Urobilinogen LESS THAN 2.0 MG/DL Urine Leukocyte Esterase NEG Urine Squamous Epithelial Cells 1 /hpf Microscopic Urinalysis Comment CULT NOT INDICATED MDM Medical Decision Making Medical Screen Exam Complete: Yes Emergency Medical Condition: Yes Medical Record Reviewed: Yes Differential Diagnosis Acute bronchitis, upper respiratory viral syndrome, high blood pressure Narrative Course Patient has pre-existing hypertension, was persistently hypertensive throughout ED stay, patient was given clonidine 0.1 mg orally. Patient had significant improvement with albuterol Atrovent DuoNeb mixed with lidocaine 4% 1 cc. Patient had complete cessation of coughing. Patient is laboratory examinations are pending with possible hypertensive urgency. Patient's blood pressure normalized with addition of clonidine and also improvement in her respiratory status. Patient will have discharge on her chart for the above diagnoses, with instructions to maintain her blood pressure medications as previous prescribed follow-up with her doctor. Laboratory examinations require a dressing including elevated troponin,) kidney function, protein in urine. Case discussed with Dr. Conner Diagnosis Primary Impression: Hypertension Qualified Codes: I10 - Essential (primary) hypertension Additional Impression: Acute bronchitis Qualified Codes: J20.9 - Acute bronchitis, unspecified Patient Instructions: Acute Bronchitis (ED), General Instructions Additional Instructions: Albuterol inhaler 2 puffs every 4-6 hours as needed. Medrol Dosepak tapering steroids as prescribed. Tessalon Perles 100 mg every 8 hours as needed for cough. Follow-up with your physician, recommend repeat blood pressure check this week. Return promptly for worsening Scripts Benzonatate (Tessalon Perles) 100 Mg Cap 100 MG PO TID Y for COUGH, #20 CAP 0 Refills Prov: Carlos Oscar MD 11/24/17 Methylprednisolone Dosepak (Medrol Dosepak) 4 Mg Dspk 4 MG PO DIRECTED, #1 DSPK 0 Refills Per Pharmacist direction Prov: Carlos Oscar MD 11/24/17 Albuterol 18 GM Inh (Ventolin Hfa 18 GM Inh) 90 Mcg/Act Aer 2 PUFF INH Q4-6H Y for SHORTNESS OF BREATH, #1 INHALER 0 Refills Prov: Carlos Oscar MD 11/24/17 Disposition: 01 DISCHARGE HOME Condition: Stable Carlos Oscar MD Nov 24, 2017 06:43
[2017-11-24 07:00] LABS: AUTOMATED NEUTROPHIL # 5.2 TH/MM3 (1.8-7.7); BASOPHIL # 0.1 TH/MM3 (0-0.2); BASOPHIL % 0.8 % (0.0-2.0); EOSINOPHIL # 0.2 TH/MM3 (0-0.4); EOSINOPHIL % 2.7 % (0.0-4.0); HEMATOCRIT 39.2 % (35.0-46.0); HEMOGLOBIN 13.2 GM/DL (11.6-15.3); LYMPH % 27.9 % (9.0-44.0); LYMPHOCYTE # 2.3 TH/MM3 (1.0-4.8); MEAN CELL VOLUME 89.4 FL (80.0-100.0); MEAN CORPUSCULAR HEMOGLOBIN 30.2 PG (27.0-34.0); MEAN CORPUSCULAR HGB CONC 33.8 % (32.0-36.0); MEAN PLATELET VOLUME 9.8 FL (7.0-11.0); MONOCYTE # 0.4 TH/MM3 (0-0.9); NEUT % 63.6 % (16.0-70.0); PLATELET COUNT 208 TH/MM3 (150-450); RED BLOOD COUNT 4.38 MIL/MM3 (4.00-5.30); RED CELL DISTRIBUTION WIDTH 13.9 % (11.6-17.2); WHITE BLOOD COUNT 8.2 TH/MM3 (4.0-11.0)
[2017-11-24 07:06] LABS: BILIRUBIN, URINE NEG (NEG); BLOOD, URINE NEG (NEG); GLUCOSE,URINE NEG (NEG); KETONE, URINE NEG (NEG); NITRITE,URINE NEG (NEG); PH, URINE 5.5 (5.0-8.5); SQUAMOUS EPITHELIAL CELL URINE 1 /hpf (0-5); URINE COLOR LIGHT-YELLOW (YELLW/STRAW); URINE LEUKOCYTE ESTERASE NEG (NEG)
[2017-11-24 07:08] VITALS: BP 205/100
[2017-11-24] MEDS ORDERED: VENTAER INH (07:15)
[2017-11-24] MEDS ORDERED: BENZ100 PO (07:15)
[2017-11-24] MEDS ORDERED: MEDR4PAK PO (07:15)
[2017-11-24 07:24] LABS: ALBUMIN 4.1 GM/DL (3.4-5.0); ALT (GPT) 26 U/L (10-53); AST (GOT) 23 U/L (15-37); BICARBONATE 26.6 MEQ/L (21.0-32.0); BLOOD UREA NITROGEN 11 MG/DL (7-18); CALCIUM 8.8 MG/DL (8.5-10.1); CHLORIDE 104 MEQ/L (98-107); CREATININE 1.06 MG/DL (0.50-1.00); GLOMERULAR FILTRATION RATE 51 ML/MIN (>89); GLUCOSE,RANDOM 120 MG/DL (74-106); SODIUM (NA) 138 MEQ/L (136-145)
[2017-11-24 07:26] VITALS: BP 187/96
[2017-11-24 07:27] LABS: ALKALINE PHOSPHATASE 102 U/L (45-117); TOTAL BILIRUBIN ADULT 0.3 MG/DL (0.2-1.0); TROPONIN I LESS THAN 0.02 NG/ML (0.02-0.05)
--- NOTE | 2017-11-24 12:24 | EKG ---
Date Performed: 11/24/2017 Time Performed: 06:31:25 PTAGE: 77 years EKG: Sinus rhythm NONSPECIFIC ST & T-WAVE ABNORMALITY BORDERLINE ECG Since PREVIOUS TRACING , no significant change noted PREVIOUS TRACIN06/11/2017 07.56 DOCTOR: Michael Atkins Interpretating Date/Time 11/24/2017 12:23:56
== END 2017-11-24 08:22 | disposition home or self-care (01) ==
LOC: NEPC 04:47
DX: J40 Bronchitis, not specified as acute or chronic (principal); I10 Essential (primary) hypertension; R94.31 Abnormal electrocardiogram [ECG] [EKG]; D64.9 Anemia, unspecified; K21.9 Gastro-esophageal reflux disease without esophagitis; M19.071 Primary osteoarthritis, right ankle and foot; M19.079 Primary osteoarthritis, unspecified ankle and foot; M19.042 Primary osteoarthritis, left hand; M19.041 Primary osteoarthritis, right hand
CPT/HCPCS: 71045; 80053; 81001; 84484; 85025; 87804; 93005; 94664; 99285; J7512